=== PATIENT | male | born 1995 | race Caucasian/White ===

== ENCOUNTER 2019-04-02 15:22 | Emergency (ER) | payer OTHER, BC ==
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
[2019-04-02] MEDS ORDERED: Iopamidol 612 MG/ML 100 ML Bottle IVPUSH ONE (16:05)
[2019-04-02] MEDS ORDERED: Sodium Chloride 0.9% 20 ML SDV FLUSH ONE (16:05)
--- NOTE | 2019-04-02 16:52 | CT ---
CT cervical spine Technique: Multiple axial sections were obtained from above C1 inferiorly to the mid T2 level. Reconstructed sagittal and coronal images were reviewed. Comparison: No prior cervical spine imaging. Findings: Vertebral body heights and disc spaces are maintained. Vertebral bodies and posterior arches show no fracture. No bony central or bony neural foraminal stenosis is seen. No traumatic disc herniation is seen. No abnormal subluxation is seen. Mild ligamentum nuchal calcification is noted. Impression: 1. Mild ligamentum nuchal calcification which is pre-existing and chronic. 2. No acute fracture or subluxation is seen within the cervical spine. Diagnostic code #2
--- NOTE | 2019-04-02 16:53 | CT ---
CT chest Technique: Multiple axial sections were obtained from above the lung apices inferiorly through the lung bases. Intravenous contrast was utilized. Comparison: No prior chest imaging. Findings: There is slight soft tissue density which is felt to be due to residual thymus within the superior mediastinum. Aorta shows no aneurysm. No fluid within the mediastinum or adenopathy within the mediastinum is seen. No pericardial fluid is seen. Minimal dependent atelectasis is seen posteriorly. Lungs otherwise are clear. No pulmonary contusion is seen. No pleural effusions are seen. No pneumothorax is seen. No discrete rib fracture is seen. Clavicles appear intact. Visualized shoulder and scapula appear intact. Sagittal reconstruction view shows the vertebral body heights and disc spaces to be maintained. No discrete fracture or subluxation is seen within the thoracic spine. Sagittal images of the sternum are felt to be intact. Impression: 1. Nothing acute is seen on CT study of the chest. Diagnostic code #1 CT abdomen and pelvis Technique: Multiple axial sections were obtained from above the dome of the diaphragm inferiorly through the pubic symphysis. Intravenous contrast was utilized. No oral contrast has been given. Delayed images were obtained to the bladder. Comparison: No prior abdominal imaging is available. Findings: Liver shows no focal abnormality. Spleen appears within normal limits. Adrenal glands show no nodule. Kidneys show symmetric contrast enhancement with no abnormality being seen. Pancreas also appears within normal limits. Gallbladder contains no calcified gallstones. Aorta shows no aneurysm with normal enhancement. No retroperitoneal adenopathy is seen. Appendix is seen which is normal in size. No pelvic mass or adenopathy is seen. Delayed images shows contrast within the distal ureters and within the bladder. No free fluid or inflammatory change is seen. Bone window settings were reviewed which shows vertebral body heights and disc spaces to be maintained within the lumbar spine. No discrete lumbar spine fracture is seen. No fracture is identified within the hips or within the pelvis. Impression: 1. Nothing acute is appreciated on CT study of the abdomen and pelvis. Diagnostic code #1
== END 2019-04-02 17:28 | disposition home or self-care (01) ==
LOC: JD.ED 15:22
DX: S13.4XXA Sprain of ligaments of cervical spine, initial encounter (principal); S20.211A Contusion of right front wall of thorax, initial encounter; Z98.890 Other specified postprocedural states; V29.9XXA Motorcycle rider (driver) (passenger) injured in unspecified traffic accident, initial encounter; R10.11 Right upper quadrant pain
CPT/HCPCS: 36415; 71260; 72125; 74177; 80053; 82150; 85025; 85610; 85730; 99285; Q9967; 99283

== ENCOUNTER 2020-02-12 14:46 | Emergency (ER) | payer SELFPAY ==
[2020-02-12] MEDS ORDERED: Metoclopramide 10 MG/2 ML SDV IVPUSH ONE (15:11)
[2020-02-12] MEDS ORDERED: Sodium Chloride 0.9% 10 ML Syringe FLUSH PRN ×2 (15:11→15:55)
[2020-02-12] MEDS ORDERED: Sodium Chloride 0.9% 1,000 ML IV SCH (15:15)
[2020-02-12] MEDS ORDERED: Alum Hydrox/Mag Hydrox/Simeth 30 ML, Lidocaine 2% 15 ML PO ONE ×2 (15:15)
--- NOTE | 2020-02-12 15:18 | EDM.PDOC ---
ED HPI GENERAL MEDICAL PROBLEM - General Chief Complaint: Abdominal Pain Stated Complaint: GALLBLADDER COMPLAINT Time Seen by Provider: 02/12/20 14:55 Source of Information: Reports: Patient, RN Notes Reviewed History Limitations: Reports: No Limitations - History of Present Illness INITIAL COMMENTS - FREE TEXT/NARRATIVE: Patient is a 24-year-old male who presents to the ED for evaluation of his abdomen pain. Patient notes that he has been having on and off abdomen pain for the last week, he states that he feels nauseous, and has had an emesis on a daily basis. He states that his stools have also been looser than they normally are, and he has used Pepto to try to remedy this, but it has not provided much relief. Patient states that the pain is always kind of a dull constant pain, but does have instances where it is very sharp. He states the other day while jumping off of the trailer at work, when he maria e himself on the ground, this seemed to make the pain extremely worse. Patient notes that he believes the pain to be more in his epigastrium, and right sides of his abdomen. Patient states that he can eat, but when he tries to eat a full meal, he has abdomen pain roughly 1 hour after eating. Patient denies any fevers or chills, states he has had some nausea, vomiting and some looser stools, he does have heartburn, but he has no cough shortness of breath, chest pain. He denies any abdomen surgeries. Patient states that he has not tried to do Tylenol or ibuprofen as this does not usually seem to help his pain much in times past. Upper Abdominal Pain Score (Numeric/FACES): 7 - Related Data Allergies Allergy/AdvReac Type Severity Reaction Status Date / Time No Known Allergies Allergy Verified 02/12/20 14:55 Home Meds: Home Meds Sucralfate [Carafate] 1 tab PO QID #30 tablet 02/12/20 [Rx] Past Medical History HEENT History: Reports: Other (See Below) Other HEENT History: eye problem....has to see a specialist for this. "white blood cells are attacking each other. 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" Gastrointestinal History: Reports: GERD Musculoskeletal History: Reports: Fracture - Past Surgical History HEENT Surgical History: Reports: Tonsillectomy Social & Family History - Tobacco Use Smoking Status *Q: Current Some Day Smoker Years of Tobacco use: 8 Packs/Tins Daily: 0.2 - Caffeine Use Caffeine Use: Reports: None - Alcohol Use Alcohol Use History: Yes Alcohol Use Frequency: Socially - Recreational Drug Use Recreational Drug Use: No - Living Situation & Occupation Living situation: Reports: Single Occupation: Employed ED ROS GENERAL - Review of Systems Review Of Systems: Comprehensive ROS is negative, except as noted in HPI. ED EXAM, GI/ABD - Physical Exam Exam: See Below Exam Limited By: No Limitations General Appearance: Alert, WD/WN, No Apparent Distress, Obese Eyes: Bilateral: Normal Appearance Throat/Mouth: Normal Inspection, Normal Lips, Normal Teeth, Normal Gums, Normal Oropharynx, Normal Voice, No Airway Compromise Head: Atraumatic Neck: Normal Inspection Respiratory/Chest: No Respiratory Distress, Lungs Clear, Normal Breath Sounds, No Accessory Muscle Use, Chest Non-Tender Cardiovascular: Normal Peripheral Pulses, Regular Rate, Rhythm, No Murmur GI/Abdominal Exam: Normal Bowel Sounds, Soft, No Distention, No Mass, Tender (RLQ, McBurney's point is positive and slight tenderness in RUQ) Extremities: Normal Inspection, Normal Capillary Refill Neurological: Alert, Oriented, Normal Cognition, No Motor/Sensory Deficits Psychiatric: Normal Affect, Normal Mood Skin Exam: Warm, Dry, Intact, Normal Color, No Rash Course - Vital Signs Last Recorded V/S: Last Vital Signs Temp 98.9 F 02/12/20 14:55 Pulse 74 02/12/20 14:55 Resp 16 02/12/20 14:55 BP 133/84 02/12/20 14:55 Pulse Ox 97 02/12/20 14:55 - Orders/Labs/Meds Orders: Active Orders 24 hr Category Date Time Status Peripheral IV Care [RC] . DIRECTED Care 02/12/20 15:11 Ordered UA W/MICROSCOPIC [URIN] Stat Lab 02/12/20 15:10 Ordered Sodium Chloride 0.9% [Normal Saline] 1,000 ml Med 02/12/20 15:15 Ordered IV ASDIRECTED Sodium Chloride 0.9% [Saline Flush] Med 02/12/20 15:11 Ordered 10 ml FLUSH ASDIRECTED PRN Sodium Chloride 0.9% [Saline Flush] Med 02/12/20 15:55 Active 10 ml FLUSH ONETIME PRN Peripheral IV Insertion Adult [OM.PC] Stat Oth 02/12/20 15:11 Ordered Medication Orders Sodium Chloride (Normal Saline) 1,000 mls @ 999 mls/hr IV ASDIRECTED SHOLA Last Admin: 02/12/20 15:24 Dose: 999 mls/hr Documented by: OREN Sodium Chloride (Saline Flush) 10 ml FLUSH ASDIRECTED PRN PRN Reason: Keep Vein Open Last Admin: 02/12/20 15:24 Dose: 10 ml Documented by: OREN Sodium Chloride (Saline Flush) 10 ml FLUSH ONETIME PRN PRN Reason: IV FLUSH Last Admin: 02/12/20 16:22 Dose: 10 ml Documented by: CORRY Labs: Laboratory Tests 02/12/20 02/12/20 02/12/20 Range/Units 15:30 15:30 16:45 WBC 7.43 (4.23-9.07) K/mm3 RBC 4.48 L (4.63-6.08) M/mm3 Hgb 13.8 (13.7-17.5) gm/dl Hct 41.0 (40.1-51.0) % MCV 91.5 D (79.0-92.2) fl MCH 30.8 (25.7-32.2) pg MCHC 33.7 (32.2-35.5) g/dl RDW Std Deviation 44.5 H (35.1-43.9) fL Plt Count 263 (163-337) K/mm3 MPV 11.5 (9.4-12.3) fl Neutrophils % (Manual) 52 (40-60) % Band Neutrophils % 0 (0-10) % Lymphocytes % (Manual) 35 (20-40) % Atypical Lymphs % 0 % Monocytes % (Manual) 9 (2-10) % Eosinophils % (Manual) 4 (0.8-7.0) % Basophils % (Manual) 0 L (0.2-1.2) Platelet Estimate Adequate RBC Morph Comment Normal Sodium 143 (136-145) mEq/L Potassium 4.0 (3.5-5.1) mEq/L Chloride 105 (98-107) mEq/L Carbon Dioxide 29 (21-32) mEq/L Anion Gap 13.0 (5-15) BUN 14 (7-18) mg/dL Creatinine 1.3 (0.7-1.3) mg/dL Est Cr Clr Drug Dosing 105.63 mL/min Estimated GFR (MDRD) > 60 (>60) mL/min BUN/Creatinine Ratio 10.8 L (14-18) Glucose 92 (74-106) mg/dL Calcium 9.0 (8.5-10.1) mg/dL Total Bilirubin 0.4 (0.2-1.0) mg/dL GGT 61 (15-85) U/L AST 42 H (15-37) U/L ALT 57 (16-63) U/L Alkaline Phosphatase 77 (46-116) U/L Total Protein 7.6 (6.4-8.2) g/dl Albumin 4.0 (3.4-5.0) g/dl Globulin 3.6 gm/dL Albumin/Globulin Ratio 1.1 (1-2) Lipase 109 (73-393) U/L Urine Color Yellow (Yellow) Urine Appearance Clear (Clear) Urine pH 7.5 (5.0-8.0) Ur Specific [place] 1.020 (1.005-1.030) Urine Protein Negative (Negative) Urine Glucose (UA) Negative (Negative) Urine Ketones Negative (Negative) Urine Occult Blood Trace-intact H (Negative) Urine Nitrite Negative (Negative) Urine Bilirubin Negative (Negative) Urine Urobilinogen 0.2 (0.2-1.0) Ur Leukocyte Esterase Negative (Negative) Meds: Medications Generic Name Dose Route Start Last Admin Trade Name Freq PRN Reason Stop Dose Admin Sodium Chloride 1,000 mls @ 999 mls/hr 02/12/20 15:15 02/12/20 15:24 Normal Saline IV 999 mls/hr ASDIRECTED SHOLA Administration Sodium Chloride 10 ml 02/12/20 15:11 02/12/20 15:24 Saline Flush FLUSH 10 ml ASDIRECTED PRN Administration Keep Vein Open Sodium Chloride 10 ml 02/12/20 15:55 02/12/20 16:22 Saline Flush FLUSH 10 ml ONETIME PRN Administration IV FLUSH Discontinued Medications Generic Name Dose Route Start Last Admin Trade Name Freq PRN Reason Stop Dose Admin Al Hydroxide/Mg Hydroxide 30 0 ml 02/12/20 15:15 02/12/20 15:30 ml/ Lidocaine HCl 15 ml PO 02/12/20 15:16 45 ml ONETIME ONE Administration Diatrizoate Meglum/Diatrizoate Sod 120 ml 02/12/20 15:55 02/12/20 16:22 Gastrografin 37% PO 02/12/20 15:56 90 ml ONETIME ONE Administration Iopamidol 100 ml 02/12/20 15:55 02/12/20 16:22 Isovue-300 (61%) IVPUSH 02/12/20 15:56 100 ml ONETIME ONE Administration Iopamidol 50 ml 02/12/20 15:55 02/12/20 16:22 Isovue-300 (61%) IVPUSH 02/12/20 15:56 50 ml ONETIME ONE Administration Metoclopramide HCl 10 mg 02/12/20 15:11 02/12/20 15:23 Reglan IVPUSH 02/12/20 15:12 10 mg ONETIME ONE Administration - Re-Assessments/Exams Free Text/Narrative Re-Assessment/Exam: 02/12/20 15:17 Patient presents to the ED for evaluation of his abdomen pain. Have ordered IV with some IV fluids, 10 mg Reglan, labs, abdomen pelvis CT with oral and IV contrast for further evaluation. Hard to tell where source of pain is; as the patient is obese. 02/12/20 16:50 Laboratory evaluation is unremarkable, CT demonstrates no abnormalities. I do suspect the patient could have issues with GERD or heartburn in nature, I did order a GI cocktail to start with, will reassess and see if the GI cocktail has helped, will likely have him follow-up with a regular provider sometime this coming week for further management. 02/12/20 16:56 Patient did relate that he had some relief from the pain with the GI cocktail, patient states he already takes omeprazole at home, I will add Carafate to his regimen, he will have to follow-up with a primary care provider for continuation of this medication, and I will refer him to our general surgeon die maker electronic for possible EGD to evaluate for the a possible ulcer. Departure - Departure Time of Disposition: 16:58 Disposition: Home, Self-Care 01 Condition: Good Clinical Impression: Epigastric abdominal pain, Heartburn - Discharge Information *PRESCRIPTION DRUG MONITORING PROGRAM REVIEWED*: No *COPY OF PRESCRIPTION DRUG MONITORING REPORT IN PATIENT ORAL: No Prescriptions: Sucralfate [Carafate] 1 tab PO QID #30 tablet Instructions: Heartburn, [id number], Gastroesophageal Reflux Disease, Adult, [id number] Referrals: Yared Poe MD [Physician] - 2 Weeks (?GERD vs ulcer, possibly needs EGD for further evaluation) Forms: ED Department Discharge Additional Instructions: You were evaluated in the ER today regarding your generalized upper abdominal pain. Laboratory evaluation at today's visit is essentially unremarkable, and his CT was also unremarkable, there is no sign of any sort of bacterial infection happening in your abdomen at today's visit. Your pain and symptoms are most likely due to heartburn/possible ulcer/acid reflux in nature. You already are on omeprazole, please continue to take this, recommend you take 40 mg daily for the next few weeks to see if this also does not help relieve some of your symptoms. You were also given a medication called Carafate, this will be 1 tablet 4 times a day. You were given enough for a week to see if this would help. You will need to follow-up with a primary care physician for continuation of this medication. Please call our clinic [phone] to set up with a primary care provider of choice if you do not already have one. Any family practice provider would be able to provide you with the services. Highly recommend you also try to set up an appointment with our general surgeon for an upper endoscopy to evaluate for possible ulcer. A referral to him will be put in for you from this visit. Try to stick to a bland diet, and avoid any sort of spicy foods, alcohol, chocolate, aspirin or NSAID use. Dietary guidelines can be found online if you should desire to research this further. Please return to the ER at any time if symptoms change or worsen. Sepsis Event Note (ED) - Evaluation Sepsis Screening Result: No Definite Risk - Focused Exam Vital Signs: Vital Signs Temp Pulse Resp BP Pulse Ox 02/12/20 14:55 98.9 F 74 16 133/84 97 - My Orders Last 24 Hours: My Active Orders 02/12/20 15:10 UA W/MICROSCOPIC [URIN] Stat 02/12/20 15:11 Peripheral IV Care [RC] . DIRECTED Sodium Chloride 0.9% [Saline Flush] 10 ml FLUSH ASDIRECTED PRN Peripheral IV Insertion Adult [OM.PC] Stat 02/12/20 15:15 Sodium Chloride 0.9% [Normal Saline] 1,000 ml IV ASDIRECTED 02/12/20 15:55 Sodium Chloride 0.9% [Saline Flush] 10 ml FLUSH ONETIME PRN - Assessment/Plan Last 24 Hours: My Active Orders 02/12/20 15:10 UA W/MICROSCOPIC [URIN] Stat 02/12/20 15:11 Peripheral IV Care [RC] . DIRECTED Sodium Chloride 0.9% [Saline Flush] 10 ml FLUSH ASDIRECTED PRN Peripheral IV Insertion Adult [OM.PC] Stat 02/12/20 15:15 Sodium Chloride 0.9% [Normal Saline] 1,000 ml IV ASDIRECTED 02/12/20 15:55 Sodium Chloride 0.9% [Saline Flush] 10 ml FLUSH ONETIME PRN
[2020-02-12] MEDS ORDERED: Diatrizoate Meglumine/Diatrizoate Sodium 37% 120 ML Bottle PO ONE (15:55)
[2020-02-12] MEDS ORDERED: Iopamidol 612 MG/ML 50 ML SDV IVPUSH ONE (15:55)
[2020-02-12] MEDS ORDERED: Iopamidol 612 MG/ML 100 ML Bottle IVPUSH ONE (15:55)
--- NOTE | 2020-02-12 16:47 | CT ---
CT abdomen and pelvis Technique: Multiple axial sections were obtained from above the dome of the diaphragm inferiorly through the pubic symphysis. Intravenous and oral contrast was utilized. Comparison: Prior CT abdomen and pelvis study of 04/12/19. Findings: Visualized lung bases show nothing acute. Liver contains no focal parenchymal abnormality. Gallbladder is collapsed. Spleen appears normal. Pancreas shows no discrete abnormality. Adrenal glands show no nodule. Kidneys show symmetric contrast enhancement without hydronephrosis or mass. Aorta shows no aneurysm. No retroperitoneal adenopathy or mesenteric abnormalities are seen. Appendix is seen which appears normal. No pelvic mass or adenopathy is seen. No free fluid or inflammatory change is appreciated. Delayed images shows contrast within the distal ureters and within the bladder. Bone window settings were reviewed which show no acute osseous finding. Impression: 1. Nothing acute is appreciated on CT study of the abdomen and pelvis. Diagnostic code #1 This report was dictated in MDT
== END 2020-02-12 17:12 | disposition home or self-care (01) ==
LOC: JD.ED 14:46
DX: R12 Heartburn (principal); F17.210 Nicotine dependence, cigarettes, uncomplicated; K21.9 Gastro-esophageal reflux disease without esophagitis; Z79.899 Other long term (current) drug therapy
CPT/HCPCS: 36415; 74177; 80053; 81001; 82977; 83690; 85007; 85027; 96361; 96374; 99284; A9270; J2765; J7030; Q9963; Q9967; 99282

== ENCOUNTER 2020-03-28 09:32 | Day surgery (SDC) | payer OTHER ==
[~2020-03-28 09:32] MED LIST: Lactated Ringers 1,000 ML IV SCH; Lidocaine 1% 2 ML SDV ONE; Lidocaine 1%/Sod Bicarbonate in NS 8.4% 1 ML Syringe IDERM PRN; Propofol 200 MG/20 ML SDV ONE; Sodium Chloride 0.9% 10 ML Syringe FLUSH PRN; fentaNYL 100 MCG/2 ML SDV ONE
--- NOTE | 2020-03-28 10:12 | PCM.PREANE ---
Preanesthetic Assessment - Procedure Proposed Procedure: EGD - Anesthesia/Transfusion/Family Hx Anesthesia History: Prior Anesthesia Without Reaction Family History of Anesthesia Reaction: No Transfusion History: No Prior Transfusion(s) Intubation History: Unknown - Review of Systems General: No Symptoms Pulmonary: No Symptoms (Chew tobacco:3 months ago. Smoker: less than 1/2ppd for 10 years. ETOH: last one month ago.) Cardiovascular: No Symptoms Gastrointestinal: No Symptoms (GERD), Decreased Appetite, Difficulty Swallowing, Melena Neurological: Headache (History of migraines), Numbness (bilateral hands and feet at times. None present currently) Other: Reports: Sinus Problem (history of allergic rhinitis-patient sounds nasally congested today.), Neck Pain (chronic due to work: 12/04) - Physical Assessment NPO Status Date: 03/27/20 NPO Status Time: 22:00 Vital Signs: Last Vital Signs Temp 36.3 C 03/28/20 09:35 Pulse 64 03/28/20 09:35 Resp 16 03/28/20 09:35 BP 134/76 03/28/20 09:35 Pulse Ox 98 03/28/20 09:35 Height: 1.91 m Weight: 134 kg ASA Class: 2 Mental Status: Alert & Oriented x3 Airway Class: Mallampati = 2 Dentition: Reports: Normal Dentition, Caries Thyro-Mental Finger Breadths: 3 Mouth Opening Finger Breadths: 3 ROM/Head Extension: Full Lungs: Clear to Auscultation, Normal Respiratory Effort Cardiovascular: Regular Rate, Regular Rhythm, No Murmurs - Lab Values: All labs reviewed and noted and within acceptable ranges to proceed with scheduled procedure. - Allergies Allergies/Adverse Reactions: Allergies Allergy/AdvReac Type Severity Reaction Status Date / Time No Known Allergies Allergy Verified 03/27/20 14:54 - Anesthesia Plan Pre-Op Medication Ordered: None - Acknowledgements Anesthesia Type Planned: MAC Pt an Appropriate Candidate for the Planned Anesthesia: Yes Alternatives and Risks of Anesthesia Discussed w Pt/Guardian: Yes Pt/Guardian Understands and Agrees with Anesthesia Plan: Yes PreAnesthesia Questionnaire HEENT History: Reports: Impaired Vision, Other (See Below) Other HEENT History: eye problem....has to see a specialist for this. "white blood cells are attacking each other. 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 Musculoskeletal History: Reports: Fracture, Other (See Below) Other Musculoskeletal History: SHOULDER PAIN Neurological History: Reports: None Psychiatric History: Reports: None Endocrine/Metabolic History: Reports: None Hematologic History: Reports: None Immunologic History: Reports: None Oncologic (Cancer) History: Reports: None Dermatologic History: Reports: None - Infectious Disease History Infectious Disease History: Reports: None - Past Surgical History Head Surgeries/Procedures: Reports: None HEENT Surgical History: Reports: Tonsillectomy Cardiovascular Surgical History: Reports: None Respiratory Surgical History: Reports: None GI Surgical History: Reports: None Female Surgical History: Reports: None Male Surgical History: Reports: None Endocrine Surgical History: Reports: None Neurological Surgical History: Reports: None Musculoskeletal Surgical History: Reports: None Oncologic Surgical History: Reports: None Dermatological Surgical History: Reports: None - SUBSTANCE USE Smoking Status *Q: Current Some Day Smoker Recreational Drug Use History: No - HOME MEDS Home Medications: Home Meds . [No Known Home Meds] 03/27/20 [History] - CURRENT (IN HOUSE) MEDS Current Meds: Current Medications Lactated Ringer's (Ringers, Lactated) 1,000 mls @ 125 mls/hr IV ASDIRECTED SHOLA Stop: 03/28/20 23:00 Lidocaine/Sodium Bicarbonate (Buffered Lidocaine 1% In Ns 8.4%) 0.25 ml IDERM ONETIME PRN PRN Reason: Prior to IV Start Stop: 03/28/20 18:00 Sodium Chloride (Saline Flush) 10 ml FLUSH ASDIRECTED PRN PRN Reason: Keep Vein Open Stop: 03/28/20 18:00 Discontinued Medications Fentanyl (Sublimaze) Confirm Administered Dose 100 mcg .ROUTE .STK-MED ONE Stop: 03/28/20 06:15 Lactated Ringer's (Ringers, Lactated) 1,000 mls @ 125 mls/hr IV ASDIRECTED SHOLA Stop: 03/02/20 23:00 Lidocaine HCl (Lidocaine 1%) Confirm Administered Dose 4 ml .ROUTE .STK-MED ONE Stop: 03/28/20 06:15 Lidocaine/Sodium Bicarbonate (Buffered Lidocaine 1% In Ns 8.4%) 0.25 ml IDERM ONETIME PRN PRN Reason: Prior to IV Start Stop: 03/02/20 23:00 Propofol (Diprivan 20 Ml) Confirm Administered Dose 200 mg .ROUTE .STK-MED ONE Stop: 03/28/20 06:15 Sodium Chloride (Saline Flush) 10 ml FLUSH ASDIRECTED PRN PRN Reason: Keep Vein Open Stop: 03/02/20 23:00
--- NOTE | 2020-03-28 13:12 | PCM.HP.2 ---
H&P History of Present Illness - General Date of Service: 03/28/20 Admit Problem/Dx: reflux symptoms Source of Information: Patient History Limitations: Reports: No Limitations - History of Present Illness Initial Comments - Free Text/Narative: patient was seen in clinic over a month ago, and plan was devised to perform diagnostic EGD given his symptoms suggestive of reflux or peptic ulcer disease. His initial COVID screening was positive which delayed his procedure over one month, necessitating new H&P documentation. He continues to have similar symptoms with no other significant change in health status since his clinic visit. - Related Data Allergies/Adverse Reactions: Allergies Allergy/AdvReac Type Severity Reaction Status Date / Time No Known Allergies Allergy Verified 03/28/20 10:05 Home Medications: Home Meds . [No Known Home Meds] 03/27/20 [History] Past Medical History HEENT History: Reports: Impaired Vision, Other (See Below) Other HEENT History: eye problem....has to see a specialist for this. "white blood cells are attacking each other. 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: None Musculoskeletal History: Reports: Fracture, Other (See Below) Other Musculoskeletal History: SHOULDER PAIN Neurological History: Reports: None Psychiatric History: Reports: None Endocrine/Metabolic History: Reports: None Hematologic History: Reports: None Immunologic History: Reports: None Oncologic (Cancer) History: Reports: None Dermatologic History: Reports: None - Infectious Disease History Infectious Disease History: Reports: None - Past Surgical History Head Surgeries/Procedures: Reports: None HEENT Surgical History: Reports: Tonsillectomy Cardiovascular Surgical History: Reports: None Respiratory Surgical History: Reports: None GI Surgical History: Reports: None Female Surgical History: Reports: None Male Surgical History: Reports: None Endocrine Surgical History: Reports: None Neurological Surgical History: Reports: None Musculoskeletal Surgical History: Reports: None Oncologic Surgical History: Reports: None Dermatological Surgical History: Reports: None Social & Family History - Tobacco Use Smoking Status *Q: Current Some Day Smoker Tobacco Use Comment: STATES A COUPLE EVERY DAY - Caffeine Use Caffeine Use: Reports: None - Recreational Drug Use Recreational Drug Use: No Drug Use in Last 12 Months: No - Living Situation & Occupation Living situation: Reports: Single Occupation: Employed H&P Review of Systems - Review of Systems: Review Of Systems: See Below General: Reports: No Symptoms HEENT: Reports: No Symptoms Pulmonary: Reports: No Symptoms Cardiovascular: Reports: No Symptoms Gastrointestinal: Reports: Abdominal Pain, Nausea Genitourinary: Reports: No Symptoms Musculoskeletal: Reports: No Symptoms Skin: Reports: No Symptoms Psychiatric: Reports: No Symptoms Neurological: Reports: No Symptoms Hematologic/Lymphatic: Reports: No Symptoms Immunologic: Reports: No Symptoms Exam - Exam Exam: See Below - Vital Signs Vital Signs: Last Vital Signs Temp 36.3 C 03/28/20 09:35 Pulse 64 03/28/20 09:35 Resp 16 03/28/20 09:35 BP 134/76 03/28/20 09:35 Pulse Ox 98 03/28/20 09:35 Weight: 134 kg - Exam Quality Assessment: Supplemental Oxygen General: Alert HEENT: Conjunctiva Clear Neck: Supple Lungs: Clear to Auscultation, Normal Respiratory Effort Cardiovascular: Regular Rate, Regular Rhythm GI/Abdominal Exam: Soft Extremities: Normal Inspection Skin: Warm, Dry Neuro Extensive - Mental Status: Alert, Oriented x3, Normal Mood/Affect Sepsis Event Note - Evaluation Sepsis Screening Result: No Definite Risk - Focused Exam Vital Signs: Vital Signs Temp Pulse Resp BP Pulse Ox 03/28/20 09:35 36.3 C 64 16 134/76 98 Problem List Initiated/Reviewed/Updated: Yes Orders Last 24hrs: Active Orders 24 hr Category Date Time Status Peripheral IV Care [RC] . DIRECTED Care 03/28/20 00:01 Active Verify Patient Consent Obtain [RC] ASDIRECTED Care 03/28/20 00:01 Active Lactated Ringers [Ringers, Lactated] 1,000 ml Med 03/28/20 00:01 Active IV ASDIRECTED Lidocaine 1%/Sod Bicarbonate [Buffered Lidocaine 1% in Med 03/28/20 00:01 Active NS 8.4%] 0.25 ml IDERM ONETIME PRN Sodium Chloride 0.9% [Saline Flush] Med 03/28/20 00:01 Active 10 ml FLUSH ASDIRECTED PRN Medication Administration Instruction [OM.PC] Routine Oth 03/28/20 00:01 Ordered Peripheral IV Insertion Adult [OM.PC] Routine Oth 03/28/20 00:01 Ordered Medication Orders Lactated Ringer's (Ringers, Lactated) 1,000 mls @ 125 mls/hr IV ASDIRECTED SHOLA Stop: 03/28/20 23:00 Last Admin: 03/28/20 09:40 Dose: 125 mls/hr Documented by: IRMA Lidocaine/Sodium Bicarbonate (Buffered Lidocaine 1% In Ns 8.4%) 0.25 ml IDERM ONETIME PRN PRN Reason: Prior to IV Start Stop: 03/28/20 18:00 Last Admin: 03/28/20 09:38 Dose: 0.25 ml Documented by: IRMA Sodium Chloride (Saline Flush) 10 ml FLUSH ASDIRECTED PRN PRN Reason: Keep Vein Open Stop: 03/28/20 18:00 Assessment/Plan Comment:: scheduled esophagogastroduodenoscopy today. Plan for discharge to home following procedure. - Mortality Measure Prognosis:: Good
[2020-03-28] MEDS ORDERED: Ketamine 500 mg/10 ML MDV ONE (13:22)
[2020-03-28] MEDS ORDERED: Midazolam Oral Soln 10 MG/5 ML Oral Syringe ONE (13:23)
[2020-03-28] MEDS ORDERED: Midazolam 1 MG/ML 2 ML SDV ONE (13:23)
[2020-03-28] MEDS ORDERED: Propofol 200 MG/20 ML SDV ONE (13:30)
--- NOTE | 2020-03-28 13:49 | PCM.PRNOTE ---
- Free Text/Narrative Note: Date: 03/28/2020 Procedure: diagnostic upper endoscopy Indication: reflux type symptoms with epigastric pain Endoscopist: Yared Poe MD Findings: mild inflammatory appearance of proximal duodenal mucosa. No hiatal hernia or gastric ulcer. No distal esophageal abnormality appreciated. Detailed Report: The patient was taken to the endoscopy suite and placed in left lateral decubitus position. Time out was performed and monitored anesthesia care initiated. A bite block was placed and the endoscope was inserted into the mouth. The scope was advanced without resistance to the stomach. The duodenum was intubated and second portion visualized. The duodenal bulb had some mild mucosal erythema. A biopsy with cold forceps was obtained. The pylorus and antrum appeared normal, samples of antral mucosa were obtained. No gastric ulcers were seen. On retroflexion, there was no hiatal hernia. The Z line appeared normal. A sample proximal to the line was obtained representing distal esophageal mucosa. Air was suctioned from the stomach and the scope withdrawn. No esophageal pathology was appreciated on withdrawal. The patient tolerated the procedure well.
--- NOTE | 2020-03-28 14:36 | PCM48HPAN ---
Post Anesthesia Note - EVALUATION WITHIN 48HRS OF ANESTHETIC Vital Signs in Normal Range: Yes Patient Participated in Evaluation: Yes Respiratory Function Stable: Yes Airway Patent: Yes Cardiovascular Function Stable: Yes Hydration Status Stable: Yes Pain Control Satisfactory: Yes Nausea and Vomiting Control Satisfactory: Yes Mental Status Recovered: Yes Vital Signs: Last Vital Signs Temp 36.7 C 03/28/20 13:48 Pulse 68 03/28/20 14:20 Resp 16 03/28/20 14:20 BP 130/78 03/28/20 14:20 Pulse Ox 98 03/28/20 14:20
== END 2020-03-28 14:30 | disposition home or self-care (01) ==
LOC: JD.SDS 09:32
PROVIDERS: ATTEND Surgery
DX: K29.50 Unspecified chronic gastritis without bleeding (principal); K29.80 Duodenitis without bleeding; K21.0 Gastro-esophageal reflux disease with esophagitis; F17.210 Nicotine dependence, cigarettes, uncomplicated; Z86.19 Personal history of other infectious and parasitic diseases
CPT/HCPCS: 43239; J2001; J2250; J2704; J3010; J7120; 00731; A9270-GY